=== PATIENT | female | born 1985 ===

== ENCOUNTER 2020-01-11 17:14 | Emergency (ER) | payer SELFPAY ==
--- NOTE | 2020-01-11 17:24 | ER Document Report ---
HPI - HPI Time Seen by Provider: 01/11/20 17:19 Onset: Just prior to arrival Onset/Duration: Sudden Quality of pain: Sharp Pain Level: 5 Context: Patient presents with dog bite to the right upper extremity. Patient has a puncture wound to the wrist area into the right thumb. No active bleeding at this time. Patient states that wound initially bled quite a bit. Exacerbated by: Movement - MUSCULOSKELETAL Musculoskeletal: REPORTS: Extremity pain - DERM Notes: Puncture wound to right thumb and right wrist area Past Medical History - General Information source: Patient - Social History Smoking Status: Unknown if Ever Smoked Family History: Other - Past Medical History Cardiac Medical History: Reports: Other - Unspecified heart condition Vertical Provider Document - CONSTITUTIONAL Agree With Documented VS: Yes Exam Limitations: No Limitations General Appearance: WD/WN, No Apparent Distress - HEENT HEENT: Atraumatic, Normocephalic - NECK Neck: Normal Inspection - RESPIRATORY Respiratory: No Respiratory Distress - CARDIOVASCULAR Pulses: Normal: Radial - NEURO Level of Consciousness: Awake, Alert, Appropriate - DERM Integumentary: Warm, Dry Notes: Puncture wound to the right wrist and to the right thumb, no active bleeding Course - Re-evaluation Re-evalutation: 01/11/20 17:35 Patient clerk telegraph service states that patient is inquiring whether or not they are the next person to be called back into the triage area. Patient access advised that patient does have to wait a few minutes while other patients that resented here prior to patient's arrival are evaluated in an arrival time order. 01/11/20 17:46 RN to lobby to call patient back into the triage area, MADDIE Mtz states that patient became upset that they had to wait and stated that they were leaving to go to the [facility] and was seen ambulating out of the department. Patient eloped prior to completing her triage evaluation. Discharge - Discharge Clinical Impression: Dog bite Qualifiers: Encounter type: initial encounter Qualified Code(s): W54.0XXA - Bitten by dog, initial encounter Disposition: ELOPED
== END 2020-01-11 19:50 | disposition left against medical advice (07) ==
LOC: ER 17:14
DX: S61.551A Open bite of right wrist, initial encounter (principal); S61.051A Open bite of right thumb without damage to nail, initial encounter; M79.601 Pain in right arm; W54.0XXA Bitten by dog, initial encounter
CPT/HCPCS: 99281